=== PATIENT | male | born 1965 | race American Indian/Alaskan Native ===

== ENCOUNTER 2019-06-11 17:43 | Observation (INO) | payer MEDICAID, OTHER ==
[~2019-06-11] VITALS: Ht 167.6 cm; Wt 79.1 kg
--- NOTE | 2019-06-11 18:27 | NUR ---
[facility] PSYCH CONSULT INITIATED
[2019-06-11 18:52] LABS: BASOPHILS % (AUTO) 0.6 % (0-1); EOSINOPHILS # (AUTO) 0.1 X10'3 (0-0.9); EOSINOPHILS % (AUTO) 1.7 % (0-6); HEMATOCRIT 48.1 % (42.0-52.0); HEMOGLOBIN 16.7 g/dl (14.0-17.9); LYMPHOCYTES # (AUTO) 2.1 X10'3 (1.1-4.8); LYMPHOCYTES % (AUTO) 40.5 % (21-51); MEAN CORPUSCULAR HEMOGLOBIN 31.5 PG (27.0-31.0); MEAN CORPUSCULAR HGB CONC 34.8 g/dL (33.0-36.5); MEAN CORPUSCULAR VOLUME 90.5 FL (78-98); MEAN PLATELET VOLUME 8.3 FL (7.4-10.4); MONOCYTES # (AUTO) 0.5 X10'3 (0-0.9); MONOCYTES % (AUTO) 9.5 % (2-12); NEUTROPHILS # (AUTO) 2.5 X10'3 (1.8-7.7); NEUTROPHILS % (AUTO) 47.7 % (42-75); PLATELET COUNT 244 X10'3 (140-440); RED BLOOD COUNT 5.31 X10'6 (4.70-6.10); RED CELL DISTRIBUTION WIDTH 12.7 % (11.5-14.5); WHITE BLOOD COUNT 5.2 X10'3 (4.5-11.0)
[2019-06-11 19:04] LABS: ALANINE AMINOTRANSFERASE 43 U/L (12-78); ALBUMIN 4.2 G/DL (3.4-5.0); ALBUMIN/GLOBULIN RATIO 1.2 (1.1-1.5); ANION GAP 11 (8-16); ASPARTATE AMINO TRANSFERASE 23 U/L (10-37); BILIRUBIN,TOTAL 0.4 MG/DL (0.1-1.0); BLOOD UREA NITROGEN 20 MG/DL (7-18); BUN/CREATININE RATIO 18.3 (5.4-32.0); CALCIUM 8.4 MG/DL (8.5-10.1); CHLORIDE 106 MMOL/L (99-107); CREATININE 1.09 MG/DL (0.60-1.10); GLUCOSE 105 MG/DL (70-104); POTASSIUM 3.4 MMOL/L (3.5-5.1); SODIUM 142 MMOL/L (135-145); TOTAL CARBON DIOXIDE 25.4 MMOL/L (24-32); TOTAL PROTEIN 7.7 G/DL (6.4-8.2); eGFR 71 ML/MIN
[2019-06-11 19:05] LABS: ALKALINE PHOSPHATASE 55 IU/L (46-116)
[2019-06-11] MEDS ORDERED: normal saline 1000ML IV soln IVB ONE (19:15)
[2019-06-11] MEDS ORDERED: acetaminophen 325mg tablet PO ONE (19:15)
--- NOTE | 2019-06-11 20:10 | NUR ---
TELE NEURO ON [place]
--- NOTE | 2019-06-11 20:19 | NUR ---
TELE PSYCH DR MOLLY KEENE
[2019-06-11] MEDS ORDERED: aspirin 325mg tablet PO ONE (20:30)
[2019-06-11 20:32] LABS: CLARITY,URINE CLEAR (Clear); COLOR,URINE YELLOW (Yellow); GLUCOSE, URINE NEGATIVE (Neg); KETONES,URINE NEGATIVE (Neg); LEUKOCYTE ESTERASE ,URINE NEGATIVE (Neg); NITRITES, URINE NEGATIVE (Neg); OCCULT BLOOD,URINE TRACE-INTACT (Neg); PROTEIN,URINE NEGATIVE (Neg); UROBILINOGEN,URINE 0.2 E.U/dL (0.2-1.0)
[2019-06-11] MEDS ORDERED: NO HOME MEDS (20:36)
[2019-06-11 20:37] LABS: UA COLLECTION TYPE URINAL
[2019-06-11 20:38] LABS: WBC,URINE NONE SEEN /HPF (0-4)
[2019-06-11 20:39] LABS: BACTERIA,URINE NONE SEEN /HPF (Neg); RBC,URINE 0-2 /HPF (0-2); SQUAMOUS EPITHELIAL CELL,UR FEW /LPF (FEW)
[2019-06-11] MEDS ORDERED: mag hydrox/Alum hydrox/simeth 30ml oral suspension PO PRN (21:20)
[2019-06-11] MEDS ORDERED: magnesium hydroxide 30ml (MOM) UD suspension PO PRN (21:20)
[2019-06-11] MEDS ORDERED: potassium Cl 20 mEq SR tablet PO PRN ×2 (21:20)
[2019-06-11] MEDS ORDERED: magnesium 2GM in 50ml NS 50 ML IV PRN (21:20)
[2019-06-11] MEDS ORDERED: magnesium Cl slow-release 64mg tablet PO PRN (21:20)
[2019-06-11] MEDS ORDERED: metoclopramide 5 mg/ml inj IV PRN (21:20)
[2019-06-11] MEDS ORDERED: potassium CL 10mEq/100ml bag 100 ML IV PRN ×2 (21:20)
[2019-06-11] MEDS ORDERED: acetaminophen 325mg tablet PO PRN ×2 (21:20)
[2019-06-11] MEDS ORDERED: ondansetron/PF 4mg/2ml inj IV PRN (21:20)
[2019-06-11] MEDS ORDERED: bisacodyl 10mg suppository rectal RC PRN (21:20)
[2019-06-11] MEDS ORDERED: magnesium 4gm in 100ml NS 100 ML IV PRN (21:20)
[2019-06-11 21:44] LABS: HEMOGLOBIN A1C 5.5 % (4.5-6.2)
[2019-06-11 21:54] LABS: PHOSPHORUS 2.9 MG/DL (2.3-4.5)
--- NOTE | 2019-06-11 21:55 | NUR ---
I have received report from Radha DAVIS and had the opportunity to ask questions and assume patient care.
[2019-06-11 22:00] VITALS: BP 148/88
[2019-06-11] MEDS: normal saline 1000ml 1,000 ML IV SCH (22:23)
[2019-06-11 22:56] LABS: URINE AMPHETAMINE SCREEN NEGATIVE (Neg); URINE BARBITUATE SCREEN NEGATIVE (Neg); URINE BENZODIAZEPINES SCREEN NEGATIVE (Neg); URINE CANNABINOID SCREEN NEGATIVE (Neg); URINE COCAINE SCREEN NEGATIVE (Neg); URINE METHADONE SCREEN NEGATIVE (Neg); URINE OPIATE SCREEN NEGATIVE (Neg); URINE PHENCYCLIDINE SCREEN NEGATIVE (Neg)
[2019-06-12 02:00] VITALS: BP 110/65
[2019-06-12 06:20] LABS: HEMATOCRIT 43.7 % (42.0-52.0); MEAN CORPUSCULAR HEMOGLOBIN 31.1 PG (27.0-31.0); MEAN CORPUSCULAR HGB CONC 34.3 g/dL (33.0-36.5); MEAN CORPUSCULAR VOLUME 90.7 FL (78-98); MEAN PLATELET VOLUME 8.2 FL (7.4-10.4); PLATELET COUNT 240 X10'3 (140-440); RED BLOOD COUNT 4.81 X10'6 (4.70-6.10); RED CELL DISTRIBUTION WIDTH 12.7 % (11.5-14.5); WHITE BLOOD COUNT 4.4 X10'3 (4.5-11.0)
--- NOTE | 2019-06-12 06:29 | NUR ---
Problems reprioritized. Patient report given, questions answered & plan of care reviewed with Karen DAVIS.
[2019-06-12 06:42] LABS: ALBUMIN 3.2 G/DL (3.4-5.0); ANION GAP 8 (8-16); BLOOD UREA NITROGEN 20 MG/DL (7-18); BUN/CREATININE RATIO 20.8 (5.4-32.0); CHLORIDE 110 MMOL/L (99-107); CHOL/HDL RATIO 5.2 (0.00-4.99); CHOLESTEROL 162 MG/DL (0-200); CREATININE 0.96 MG/DL (0.60-1.10); GLUCOSE 96 MG/DL (70-104); HDL CHOLESTEROL 31 MG/DL (35-60); LDL CHOLESTEROL 121 MG/DL (50-100); PHOSPHORUS 2.7 MG/DL (2.3-4.5); POTASSIUM 3.7 MMOL/L (3.5-5.1); SODIUM 142 MMOL/L (135-145); TOTAL CARBON DIOXIDE 24.1 MMOL/L (24-32); TRIGLYCERIDES 108 MG/DL (20-135); eGFR 82 ML/MIN
[2019-06-12 07:01] VITALS: BP 105/65
[2019-06-12] MEDS: normal saline 1000ml 1,000 ML IV SCH (07:07)
[2019-06-12] MEDS ORDERED: K and/or MAG REPLACEMENT MC SCH (08:00)
[2019-06-12] MEDS ORDERED: aspirin 81mg tablet.DR PO SCH (08:00)
[2019-06-12] MEDS ORDERED: atorvastatin 20mg tablet PO SCH (08:00)
[2019-06-12 11:22] VITALS: BP 134/72
--- NOTE | 2019-06-12 14:32 | NUR ---
Visited with pt. Stroke work up is negative. Pt is not dizzy today. Feels "pretty much" back to normal. Dr Maciel will discharge.
[2019-06-12] MEDS ORDERED: ATOR20TA66 PO (14:50)
[2019-06-12] MEDS ORDERED: ASPI-1071 PO (14:50)
== END 2019-06-12 15:50 ==
LOC: EEVIPCON 17:44 → ER 17:44 → ORTHO 4S 21:40 → CMPBEDREQ 21:44 → ORTHO 4S 22:14
PROVIDERS: ADMIT Family Medicine; ATTEND Family Medicine
DX: R20.0 Anesthesia of skin (principal); R20.2 Paresthesia of skin; R42 Dizziness and giddiness; I16.0 Hypertensive urgency; E78.5 Hyperlipidemia, unspecified; I10 Essential (primary) hypertension; G62.9 Polyneuropathy, unspecified; I45.10 Unspecified right bundle-branch block; Z87.891 Personal history of nicotine dependence; Z79.82 Long term (current) use of aspirin; Z79.899 Other long term (current) drug therapy; Z88.0 Allergy status to penicillin
CPT/HCPCS: 36415; 70450; 70544; 70547; 70551; 80048; 80053; 80061; 80305; 81001; 83036; 83735; 84100; 84443; 84484; 85025; 85027; 87081; 92508; 92616; 93005; 93306; 93880; 96360; 96361; 97161; 97530; 99284; G0378; J7030

== ENCOUNTER 2020-05-23 13:17 | Emergency (ER) | payer OTHER ==
[~2020-05-23] VITALS: Ht 167.6 cm; Wt 84.1 kg
[~2020-05-23 13:17] MED LIST: ASPI-1071 PO; ATOR20TA66 PO
[2020-05-23 13:51] LABS: BASOPHILS % (AUTO) 0.7 % (0-1); EOSINOPHILS # (AUTO) 0.2 X10'3 (0-0.9); EOSINOPHILS % (AUTO) 4.7 % (0-6); HEMATOCRIT 46.3 % (42.0-52.0); HEMOGLOBIN 15.8 g/dl (14.0-17.9); LYMPHOCYTES # (AUTO) 1.6 X10'3 (1.1-4.8); LYMPHOCYTES % (AUTO) 30.9 % (21-51); MEAN CORPUSCULAR HEMOGLOBIN 30.1 PG (27.0-31.0); MEAN CORPUSCULAR VOLUME 88.5 FL (78-98); MONOCYTES # (AUTO) 0.3 X10'3 (0-0.9); MONOCYTES % (AUTO) 6.7 % (2-12); NEUTROPHILS # (AUTO) 2.9 X10'3 (1.8-7.7); PLATELET COUNT 268 X10'3 (140-440); RED BLOOD COUNT 5.23 X10'6 (4.70-6.10); RED CELL DISTRIBUTION WIDTH 13.1 % (11.5-14.5); WHITE BLOOD COUNT 5.2 X10'3 (4.5-11.0)
[2020-05-23 14:05] LABS: ALANINE AMINOTRANSFERASE 61 U/L (12-78); ALBUMIN 3.8 G/DL (3.4-5.0); ALBUMIN/GLOBULIN RATIO 1.2 (1.1-1.5); ALKALINE PHOSPHATASE 59 IU/L (46-116); ANION GAP 6 (8-16); ASPARTATE AMINO TRANSFERASE 36 U/L (10-37); BILIRUBIN,TOTAL 0.6 MG/DL (0.1-1.0); BLOOD UREA NITROGEN 19 MG/DL (7-18); BUN/CREATININE RATIO 12.8 (5.4-32.0); CALCIUM 8.6 MG/DL (8.5-10.1); CHLORIDE 106 MMOL/L (99-107); CREATININE 1.49 MG/DL (0.60-1.10); GLUCOSE 124 MG/DL (70-104); SODIUM 139 MMOL/L (135-145); TOTAL CARBON DIOXIDE 27.1 MMOL/L (24-32); TOTAL PROTEIN 7.1 G/DL (6.4-8.2); eGFR 50 ML/MIN
[2020-05-23 14:24] VITALS: BP 155/94
== END 2020-05-23 15:22 | disposition home or self-care (01) ==
LOC: EEVIPCON 13:18 → ER 13:18
DX: R42 Dizziness and giddiness (principal); I10 Essential (primary) hypertension; I45.10 Unspecified right bundle-branch block; F12.90 Cannabis use, unspecified, uncomplicated; Z56.0 Unemployment, unspecified; Z88.0 Allergy status to penicillin; Z79.82 Long term (current) use of aspirin; Z79.899 Other long term (current) drug therapy
CPT/HCPCS: 36415; 71045; 80053; 83880; 84484; 85025; 93005; 99285